=== PATIENT | female | born 1960 | race Caucasian/White ===

== ENCOUNTER 2022-07-28 01:26 | Day surgery (SDC) | payer OTHER, SELFPAY ==
[2022-07-20 14:19] VITALS: BMI 27.0
[2022-07-28 12:14] VITALS: BP 117/71; PULSE 64; RESP 20; TEMP 36.3; O2SAT 100; BMI 26.1
[2022-07-28] MEDS: LACTATED RINGERS 1,000 ML 150 ML IV CONT (12:17)
--- NOTE | 2022-07-28 12:37 | P.HPUP_ITS ---
History and Physical Update Update Date/Time: 07/28/22 12:37 Patient's main complaint is hoarseness. She does have some concomitant dysphagia. Plan for EGD today. Patient would benefit from ENT referral. History and Physical has been reviewed, including an updated exam of the patient . There are NO changes in the patient's condition. Risks, benefits, and alternatives have been discussed and questions answered. Patient agrees to proceed with procedure.
--- NOTE | 2022-07-28 13:18 | WPDANESEPPF ---
Anes - Initial Pre Proc Eval Procedure: Operation Date: 07/28/22 13:30 Proposed Procedures p Esophagogastroduodenoscopy - Hussein Anguiano MD Date/Time: 07/28/22 13:18 Surgeon: Hussein Anguiano MD Pre Op Diagnosis: dysphagia Patient Data Age: 61 Gender: F Height: 1.68 m Weight: 73.5 kg Last Vital Signs Temp 97.4 F L 07/28/22 12:14 Pulse 64 07/28/22 12:14 Resp 20 07/28/22 12:14 BP 117/71 07/28/22 12:14 Pulse Ox 100 07/28/22 12:14 O2 Del Method Room Air 07/28/22 12:14 Allergies Allergy/AdvReac Type Severity Reaction Status Date / Time No Known Allergies Allergy Unknown Verified 07/28/22 12:13 NKFA Allergy Mild Unknown Uncoded 07/28/22 12:13 Home Medications Medication Instructions Recorded Confirmed Type aspirin 81 mg tablet,delayed 81 mg PO DAILY 07/14/22 07/20/22 History release (Adult Aspirin Regimen) atorvastatin 20 mg tablet 20 mg PO DAILY 07/14/22 07/20/22 History cholecalciferol (vitamin D3) 10 10 mcg PO DAILY 07/14/22 07/20/22 History mcg (400 unit) capsule glucosamine HCl 500 mg tablet 500 mg PO DAILY 07/14/22 07/20/22 History lactobacillus combination no.9 4 4,000 mmu cells PO DAILY 07/14/22 07/20/22 History billion cell capsule (Adult 50 Plus Probiotic) meloxicam 15 mg tablet 15 mg PO DAILY 07/14/22 07/20/22 History metoprolol succinate 25 mg 12.5 mg PO DAILY 07/14/22 07/28/22 History tablet,extended release 24 hr omeprazole 20 mg capsule,delayed 20 mg PO DAILY 07/14/22 07/20/22 History release rizatriptan 10 mg tablet 10 mg PO ONCE 07/14/22 07/20/22 History Patient hx anesthesia problems: none Family hx anesthesia problems: none Results Review: All pre-operative results and documents have been reviewed as part of the pre-operative evaluation. PMFSH Past Medical History Medical History Normal colonoscopy Surgical History Surgical History H/O: hysterectomy History of lumpectomy of left breast Family History Family History Father Hypertension Mother Lung cancer Social History Social History Smoking status: Never smoker Second hand tobacco smoke exposure: No Alcohol intake: current Drinks per week: 4 Alcohol use details: wine 2 times weekly Substance use: never Substance use type: does not use Living arrangements: with family Spiritual care concerns: No Anes - Eval Final PreProcedure Day of Procedure 07/28/22 13:18 Patient weight: normal Heart: regular rate and rhythm Lungs: clear to auscultation Airway: Mallampati scale class II Neurological: alert and oriented Last oral intake: >/= 8 hours ASA classification: II Emergent: no Anesthetic plan: proceed Anesthesia type and monitoring: general GIVS and standard monitoring Results Review: All pre-operative results and documents have been reviewed as part of the pre-operative evaluation. Informed Consent: The patient's anesthetic plan and its attendant risks and benefits were discussed with the patient/family/POA. Questions were solicited and answers provided to the satisfaction of the patient/family/POA.
[2022-07-28 13:57] VITALS: BP 132/94; PULSE 75; RESP 16; O2SAT 100
[2022-07-28 14:07] VITALS: BP 142/85; PULSE 73; RESP 20; O2SAT 100
[2022-07-28 14:17] VITALS: BP 142/87; PULSE 61; RESP 16; O2SAT 100
== END 2022-07-28 14:24 | disposition home or self-care (01) ==
PROVIDERS: PCP Nurse Practitioner Family; Visit Provider Internal Medicine Gastroenterology
PROC: 0DJ08ZZ Inspection of Upper Intestinal Tract, Via Natural or Artificial Opening Endoscopic (ICD-10-PCS; CPT 43235; principal; 2022-07-28 13:30)
DX: R10.13 Epigastric pain (principal); R49.0 Dysphonia; Z79.82 Long term (current) use of aspirin
CPT/HCPCS: 43235; J2704; J7120

== ENCOUNTER → 2022-11-06 07:49 | Outpatient (CLI) | payer OTHER, SELFPAY ==
--- NOTE | ~2022-11-06 | MR_ITS ---
EXAMINATION: MR lumbar spine wo con DATE: 11/06/2022 08:16 INDICATION: Low back pain. Left leg pain. TECHNIQUE: Magnetic resonance imaging (MRI) of the lumbar spine was performed without intravenous con trast. Sequences included sagittal T2-weighted FSE, sagittal T2-weighted FS FSE, sagittal T1-weighted FSE, and axial T2-weighted FSE. COMPARISON: None FINDINGS: There is 12 degrees dextroscoliosis of lumbar spine. Vertebral body heights are normal. The re is moderately decreased disc height at L2-L3, mildly decreased disc height at L3-L4, moderately de creased disc height at L4-L5, and severely decreased disc height at L5-S1 with endplate remodeling. T he distal spinal cord signal intensity is normal. The conus medullaris is at L1-L2. The following dis c levels are specifically discussed: L1-L2: There is a left central extrusion. There is mild bilateral facet joint osteoarthritis. There i s no neural foraminal stenosis. There is mild central canal stenosis. L2-L3: The disc is bulging and has an annular fissure. There is mild bilateral facet joint osteoarthr itis. There is mild bilateral neural foraminal stenosis. There is mild central canal stenosis. L3-L4: The disc is bulging and has an annular fissure. There is mild bilateral facet joint osteoarthr itis. There is mild bilateral neural foraminal stenosis. There is mild central canal stenosis. L4-L5: The disc is bulging and has an annular fissure. There is severe bilateral facet joint osteoart hritis. There is mild bilateral neural foraminal stenosis. There is mild central canal stenosis. L5-S1: The disc is bulging and has an annular fissure. There is mild bilateral facet joint osteoarthr itis. There is moderate bilateral neural foraminal stenosis. There is mild central canal stenosis. IMPRESSION: 1. Severe lumbar spondylosis. 2. Lumbar dextroscoliosis. Reviewed, dictated and finalized at location A. P SEGMENT CONSULTANT
== END ==
PROVIDERS: PCP Nurse Practitioner Family; Visit Provider Nurse Practitioner Family
DX: M54.42 Lumbago with sciatica, left side (principal); M51.36 Other intervertebral disc degeneration, lumbar region; M43.06 Spondylolysis, lumbar region; M41.86 Other forms of scoliosis, lumbar region
CPT/HCPCS: 72148

== ENCOUNTER 2025-05-01 00:18 | Day surgery (SDC) | payer MEDICARE, SELFPAY ==
[2025-04-20 14:12] VITALS: BMI 24.1
--- OUTSIDE RECORDS SUMMARY | 2025-05-01 00:20 | XMS_ITS | Clinical Summary ---
Author Organization [address] Address [address] [place] [id number] Care Team Providers Care Cook 3 Pastry Name Role Phone Mckenna Murguia NP Primary Care Provider [phone] Allergies No known active allergies Medications atorvastatin (LIPITOR) 20 mg tablet Take 1 tablet (20 mg total) by mouth daily 2 Active lisinopriL (PRINIVIL,ZESTR IL) 5 mg tablet Take 1 tablet (5 mg total) by mouth daily 2 Active meloxicam (MOBIC) 15 mg tablet Take 1 tablet (15 mg total) by mouth daily 2 Active metoprolol XL (TOPROL-XL) 25 mg extended release tablet Take 1 tablet (25 mg total) by mouth daily 2 Active omeprazole (PriLOSEC) 20 mg capsule Take by mouth daily 2 Active rizatriptan (MAXALT) 10 mg tablet TAKE 1 TABLET BY MOUTH ONCE NEEDED FOR HEADACHES. MAY REPEAT IN 2 HOURS NEEDED 2 Active aspirin 81 mg enteric coated tablet Take 1 tablet (81 mg total) by mouth daily Active cyanocobalamin, vitamin B-12, 3,000 mcg tablet, sublingual by other route Acti ve diclofenac DR (VOLTAREN) 75 mg EC tablet diclofenac sodium 75 mg tablet,delayed release 0 Active ergocalciferol (VITAMIN D) 50,000 unit capsule Take 1 capsule (50,000 Units total) by mouth once a week 2 Active fexofenadine-ps eudoephedrine (Payal-D 24 Hour) 180-240 mg per 24 hr tablet Active fluticasone propionate (FLONASE) 50 mcg/actuation nasal spray fluticasone propionate 50 mcg/actuation nasal spray,suspension Active L. acidophilus/Bif id. animalis 32 billion cell capsule Take 1 capsule by mouth daily Active mupirocin (BACTROBAN) 2 % ointment mupirocin 2 % topical ointment Active HYDROcodone-remberto taminophen (NORCO) 5-325 mg per tablet hydrocodone 5 mg-acetaminophen 325 mg tablet Active oxyCODONE-aceta minophen (PERCOCET) 5-325 mg per tablet oxycodone-acetam inophen 5 mg-325 mg tablet Active valACYclovir (VALTREX) 1 gram tablet valacyclovir 1 gram tablet Active Active Problems Problem Noted Date Diagnosed Date Laryngopharyngeal reflux (LPR) 08/25/2022 Hoarseness 08/25/2022 Thyroid nodule 08/25/2022 Pharyngeal dysphagia 08/25/2022 Surgical History Surgery Date Site/Laterality Comments TONSILLECTOMY BREAST LUMPECTOMY HYSTERECTOMY BUNIONECTOMY Medical History Medical History Date Comments Hypertension Family History Medical History Relation Name Comments Cancer Father Cancer Mother Relation Name Status Comments Father Mother Social History Tobacco Use Types Packs/Day Years Used Date Smoking Tobacco: Never Smokeless Tobacco: Never Tobacco Cessation:Counseling Given: Not Answered Personal Safety Answer Date Recorded Getting School Help Needed Not on file 12/24 Comments Unknown Sex and Gender Information Value Date Recorded Sex Assigned at Not on file 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[employer] Gender Identity Not on file Sexual Orientation Not on file Obstetrics History Last Filed Vital Signs Vital Sign Reading Time Taken Comments Blood Pressure 123/82 09/30/2024 4:17 PM CDT Pulse 72 09/30/2024 4:17 PM CDT Temperature 36.5 C (97.7 F) 09/30/2024 4:17 PM CDT Respiratory Rate 20 09/30/2024 4:17 PM CDT Oxygen Saturation 99% 09/30/2024 4:17 PM CDT Inhaled Oxygen Concentration - - Weight 72.6 kg (160 lb) 09/30/2024 4:17 PM CDT Height 170.2 cm (5' 7) 09/30/2024 4:17 PM CDT Body Mass Index 25.06 09/30/2024 4:17 PM CDT Plan of Treatment Health Maintenance Due Date Last Done Comments Colon Cancer Screening-Colonoscopy 1958 Depression Screening 1958 Fall Risk Assessment 1958 Hepatitis C Screening 1958 DTaP/Tdap/Td Vaccine (1 - Tdap) 1969 Hepatitis B Screening 1976 Pneumococcal vaccine 65+ (1 of 1 - PCV) 2008 Well Visit 65+ 2023 Covid-19 Vaccine (2023-2 5 season) 2024 08/16/2022, 04/02/2022, 11/26/2021, Additional history exists Breast Cancer Screening-Mammogram 03/07/2025 03/07/2024, 03/07/2024, 08/19/2022, Additional history exists Osteoporosis Screening-Bone Density Scan 08/21/2026 08/21/2024, 08/19/2022 Zoster Vaccine Completed 11/14/2020, 08/16/2020 Influenza Vaccine Completed 08/21/2024, , 08/16/2022, Additional history exists Insurance PPO MEDICARE [facility] Care Teams Cook 3 Pastry Relationship Specialty Start Date End Date Mckenna Murguia NP PCP - General Nurse Practitioner 08/13/22
--- OUTSIDE RECORDS SUMMARY | 2025-05-01 00:21 | XMS_ITS | CONTINUITY OF CARE DOCUMENT ---
Author Name sandra flores Address Unknown Organization [facility] Address [id number] [place] [address] [address] [place] [address] Phone [phone] Care Team Providers Care Library Assistant Name Role Phone DAHIANA MADSEN MD Unavailable [phone] DAHIANA MADSEN MD Unavailable [phone] INSURANCE PROVIDERS Payer name Policy type / Coverage type Elizabeth red alliance party ID AETNA [facility] Other [id number]
--- OUTSIDE RECORDS SUMMARY | 2025-05-01 00:21 | XMS_ITS | Encounter Summary ---
Author Organization [facility] Address [address] [place] [address] Phone Care Team Providers Care Automated Process Operator Name Role Phone Katie Cobian MD Primary Care Provider [phone] Montrell Villalpando MD Unavailable [phone] Reason for Visit * Reason Comments Medication Refill Encounter Details Date Type Department Care Team (Late st Contact Info) Description 05/28/2021 Refill [facility] [address] [place] [address] Katie Cobian MD [address] [place] [address] Medication Refill Social History Tobacco Use Types Packs/Day Years Used Date Smoking Tobacco: Never Smokeless Tobacco: Never Alcohol Use Standard Drinks/Week Comments No 0 (1 standard drink = 0.6 oz pur e alcohol) PHQ-2 Answer Date Recorded PHQ-2 Score 0 10/23/2019 Comments No Sex and Gender Information Value Date Recorded Sex Assigned at Not on file Legal Sex Female 10:03 AM CDT Gender Identity Not on file Sexual Orientation Not on file documented as of this encounter Miscellaneous Notes * Telephone Encounter - Josie Ellison RN - 05/29/2021 9:38 AM CDT The patient said she has moved and changed PCPs. [facility] at [facility] notified to [place] any scripts/refills for the patient from Dr. Cobian. * Telephone Encounter - Josie Ellison RN - 05/28/2021 9:12 AM CDT Left a message for the patient to return call. (Patient needs appointment) * Telephone Encounter - Josie Ellison RN - 05/28/2021 8:09 AM CDT Needs appointment. 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
--- OUTSIDE RECORDS SUMMARY | 2025-05-01 00:21 | XMS_ITS | Clinical Summary ---
Author Organization [facility] Address [address] [place] [address] Phone Care Team Providers Care Sheet Fed Printer Name Role Phone Montrell Villalpando MD Unavailable [phone] Allergies No known active allergies Medications Calcium Citrate-Vitamin D (CALCIUM + D PO) Take by mouth. Active Cetirizine HCl 10 MG Capsule Take by mouth. Active diclofenac (VOLTAREN) 75 MG Tablet Delayed ResponseIndications :Primary osteoarthritis of both knees TAKE 1 TABLET BY MOUTH TWICE A DAY 180 Tab 3 0 Active Rizatriptan Benzoate 10 MG TabletIndications:O ther migraine without status migrainosus, not intractable TAKE 1 TABLET BY MOUTH ONCE NEEDED FOR HEADACHES. MAY REPEAT IN 2 HOURS NEEDED 10 Tablet 2 1 Active Active Problems Problem Noted Date Diagnosed Date Migraine 07/27/2017 Primary osteoarthritis of both knees 07/27/2017 Vitamin D insufficiency 07/27/2017 Immunizations Immunization Administration Dates Next Due Influenza Vaccine 09/22/2019 Influenza Vaccine greater than 3 yrs 09/21/2018 Zoster Vaccine Recombinant 08/16/2020 Family History Medical History Relation Name Comments Hypertension Brother 1 No Known Problems Brother 2 Hypertension Brother 3 Colon Cancer Father Hypertension Father Hypertension Mother Lung Cancer Mother Ulcerative Colitis Mother Cervical Cancer Sister 1 Hypertension Sister 1 No Known Problems Sister 2 Relation Name Status Comments Brother 1 Alive Brother 2 Alive Brother 3 Alive Father Mother Sister 1 Alive Sister 2 Alive Social History Tobacco Use Types Packs/Day Years Used Date Smoking Tobacco: Never Smokeless Tobacco: Never Tobacco Cessation:Counseling Given: No Alcohol Use Standard Drinks/Week Comments No 0 (1 standard drink = 0.6 oz pur e alcohol) PHQ-2 Answer Date Recorded PHQ-2 Score 0 10/23/2019 Comments No Sex and Gender Information Value Date Recorded Sex Assigned at Not on file Legal Sex Female 10:03 AM CDT Gender Identity Not on file Sexual Orientation Not on file Last Filed Vital Signs Vital Sign Reading Time Taken Comments Blood Pressure 120/76 10/23/2019 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 Pulse 58 10/23/2019 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 Temperature 37 C (98.6 F) 10/23/2019 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 Respiratory Rate 16 10/23/2019 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 Oxygen Saturation 100% 10/23/2019 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 Inhaled Oxygen Concentration - - Weight 72.5 kg (159 lb 14.4 oz) 10/23/2019 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 Height 168.9 cm (5' 6.5) 10/23/2019 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 Body Mass Index 25.42 10/23/2019 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 Plan of Treatment Health Maintenance Due Date Last Done Comments Hepatitis C Virus (HCV) Screening 1960 TdaP Immunization 1958 Colonoscopy 2003 Colorectal Cancer Screening 2003 Cologuard 2008 Immunochemical Fecal Occult Blood 2008 Pneumococcal Immunization (50+ years) (1 of 1 - PCV) 2008 Zoster Immunization (2 of 2) 10/11/2020 08/16/2020 Influenza Immunization (#1) 2024 09/22/2019, 1 SARS-COV-2 Immunization ( season) 2024 04/02/2022, 11/26/2021, 02/28/2021, Additional history exists Respiratory Syncytial Virus (RSV) Immunization (Adult) (1 - 1-dose 75+ series) 2033 Hepatitis B Immunization Aged Out No longer eligible based on patient's age to complete this topic Meningococcal Immunization (ACWY) Aged Out No longer eligible based on patient's age to complete this topic Rotavirus Immunization Aged Out No lo nger eligible based on patient's age to complete this topic Care Teams Sheet Fed Printer Relationship Specialty Start Date End Date Montrell Villalpando MD [address] [facility] [address] [place] [address] Consulting Physician Obstetrics & Gynecology 02/15/19
--- OUTSIDE RECORDS SUMMARY | 2025-05-01 00:21 | XMS_ITS | Clinical Summary ---
Author Organization [facility] Address [address] [place] [address] Care Team Providers Care Upper Cutter Name Role Phone Katie Cobian MD Primary Care Provider [phone] Source Comments [facility],non-owned Affiliates and Associated Physician Practices is amultiple site organization consisting of ambulatory clinics and hospital sitesin [place] and [place]. This disclosure is being madepursuant to the Care Everywhere program and may not contain all information available regarding this patient. Last updated 18.[facility] Allergies No known active allergies Medications * Be aware that medications may not be up to date on this document. Alwaysverify current medications with the patient. RIZATRIPTAN BENZOATE PO Active DICLOFENAC PO Active Active Problems Problem Noted Date Diagnosed Date Arthralgia 09/24/2016 Migraine 09/24/2016 Social History Tobacco Use Types Packs/Day Years Used Date Smoking Tobacco: Never Smokeless Tobacco: Never Comments No Sex and Gender Information Value Date Recorded Sex Assigned at Not on file Legal Sex Female 9:56 AM CDT Gender Identity Not on file Sexual Orientation Not on file Last Filed Vital Signs Vital Sign Reading Time Taken Comments Blood Pressure 120/70 04/13/2018 11:19 AM CDT Pulse 60 04/13/2018 11:19 AM CDT Temperature 37.1 C (98.7 F) 04/13/2018 11:19 AM CDT Respiratory Rate 16 04/13/2018 11:19 AM CDT Oxygen Saturation 97% 04/13/2018 11:19 AM CDT Inhaled Oxygen Concentration - - Weight 70.3 kg (155 lb) 04/13/2018 11:19 AM CDT Height 172.7 cm (5' 8) 04/13/2018 11:19 AM CDT Body Mass Index 23.57 04/13/2018 11:19 AM CDT Plan of Treatment Health Maintenance Due Date Last Done Comments BONE DENSITY TESTING 1960 COLOGUARD (AGES 45-75) - COL ON CA SCREENING 1958 COLON MONITORING 1958 COLONOSCOPY - COLON CA SCREENING 1958 CT COLONOGRAPHY - COLON CA SCREENING 1958 Colorectal Cancer Screening 1958 FIT - COLON CA SCREENING 1958 FLEX SIG - COLON CA SCREENING 1958 LIPID TESTING 1958 MAMMOGRAM 1958 HEPATITIS C SCREENING 12/19/1976 DTAP/TDAP/TD VACCINES (1 - Tdap) 1977 PNEUMOCOCCAL VACCINE 50+ (1 of 1 - PCV) 2008 ZOSTER VACCINE (1 of 2) 2008 COVID-19 VACCINE (1 - 2023-2 5 season) 2024 DEPRESSION SCREENING 11/29/2024 INFLUENZA VACCINE (Season Ended) 2025 Respiratory Syncytial Virus (RSV) Vaccine Pt: or over 60 yrs (1 - 1-dose 75+ series) 2033 HEPATITIS B VACCINE Aged Out No longe r eligible based on patient's age to complete this topic HIB VACCINE Aged Out No longer eligi ble based on patient's age to complete this topic HPV VACCINE Aged Out No longer eligi ble based on patient's age to complete this topic MENINGOCOCCAL (Group B) VACC INE SHARED DECISION-MAKING Aged Out No longer eligibl e based on patient's age to complete this topic MENINGOCOCCAL GROUPS A/C/Y/W VACCINE Aged Out No longer eligible b ased on patient's age to complete this topic Insurance AETNA Care Teams Upper Cutter Relationship Specialty Start Date End Date Katie Cobian MD PCP - General Family Medicine 04/13/18
--- OUTSIDE RECORDS SUMMARY | 2025-05-01 00:21 | XMS_ITS | Clinical Summary ---
Author Organization [facility] [address] Address [address] [place] [address] Phone Care Team Providers Care Felt Hat Flanging Operator Name Role Phone Mainor Ring MD Primary Care Provider [phone] Active Problems No known active problems Immunizations Immunization Administration Dates Next Due INFLUENZA VACCINE QUADRIVALENT 3 YR UP PF IM INFLUENZA VACCINE QUADRIVALENT 6 MOS UP PF IM Social History Tobacco Use Types Packs/Day Years Used Date Smoking Tobacco: Never Assessed Comments Unknown Sex and Gender Information Value Date Recorded Sex Assigned at Not on file Legal Sex Female 5:58 AM PCAS Gender Identity Not on file Sexual Orientation Not on file Plan of Treatment Health Maintenance Due Date Last Done Comments DTAP/TDAP/TD VACCINES (1 - Tdap) 1977 BREAST CANCER SCREENING 1998 COLORECTAL SCREENING 2003 Colorectal Cancer Screening 2003 FIT-DNA Q 3 years 2003 FIT/FOBT Q 1 year 2003 Flex Sig/CT Colonography Q 5 years 2003 PNEUMOCOCCAL VACCINE 50+ YEA RS (1 of 1 - PCV) 2008 ZOSTER VACCINE (1 of 2) 2008 OSTEOPOROSIS SCREENING 2023 INFLUENZA VACCINE (#1) 2024 , 09/21/2018, 09/21/2018 RSV VACCINE (60+ or ) (1 - 1-dose 75+ series) 2033 Care Teams Felt Hat Flanging Operator Relationship Specialty Start Date End Date Mainor Ring MD PCP - General Internal Medicine 11/06/10
--- OUTSIDE RECORDS SUMMARY | 2025-05-01 00:21 | XMS_ITS | Referral Summary ---
Author Organization [address] Address [address] [place] [id number] Care Team Providers Care Document Coordinator Name Role Phone Mckenna Murguia NP Primary Care Provider [phone] Allergies No known active allergies Medications atorvastatin [...] 08/25/2022 Thyroid nodule 08/25/2022 Pharyngeal dysphagia 08/25/2022 Social History Tobacco Use Types Packs/Day Years Used Date Smoking Tobacco: Never Smokeless Tobacco: Never Tobacco Cessation:Counseling Given: Not Answered Personal Safety Answer Date Recorded Getting School Help Needed Not on file 12/24 Comments Unknown Sex and Gender Information Value Date Recorded Sex Assigned at Not on file 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
[2025-05-01 10:00] VITALS: BP 133/74; PULSE 72; RESP 17; TEMP 36.6; O2SAT 99; BMI 23.1
--- NOTE | 2025-05-01 10:10 | WPDANESEPPF ---
Anes - Initial Pre Proc Eval Procedure: Operation Date: 05/01/25 11:30 Proposed Procedures p Colonoscopy - Joe Najera MD Date/Time: 05/01/25 10:10 Surgeon: Joe Najera MD Pre Op Diagnosis: screening malignant neoplasm of colon Patient Data Age: 64 Gender: F Height: 1.7 m Weight: 67.1 kg Last Vital Signs Temp 36.6 C 05/01/25 10:00 Pulse 72 05/01/25 10:00 Resp 17 05/01/25 10:00 BP 133/74 05/01/25 10:00 Pulse Ox 99 05/01/25 10:00 O2 Del Method Room Air 05/01/25 10:00 Allergies Allergy/AdvReac Type Severity Reaction Status Date / Time No Known Allergies Allergy Unknown Verified 05/01/25 09:58 NKFA Allergy Mild Unknown Uncoded 05/01/25 09:58 Home Medications ?Medication ?Instructions ?Recorded ?Confirmed ?Type aspirin 81 mg tablet,delayed 81 mg PO DAILY 07/14/22 04/20/25 History release (Adult Aspirin Regimen) atorvastatin 20 mg tablet 20 mg PO DAILY 07/14/22 04/20/25 History cholecalciferol (vitamin D3) 10 10 mcg PO DAILY 07/14/22 04/20/25 History mcg (400 unit) capsule glucosamine HCl 500 mg tablet 500 mg PO DAILY 07/14/22 04/20/25 History lactobacillus combination no.9 4 4,000 mmu cells PO DAILY 07/14/22 04/20/25 History billion cell capsule (Adult 50 Plus Probiotic) meloxicam 15 mg tablet 15 mg PO DAILY 07/14/22 04/20/25 History metoprolol succinate 25 mg 25 mg PO DAILY 07/14/22 05/01/25 History tablet,extended release 24 hr omeprazole 20 mg capsule,delayed 20 mg PO DAILY 07/14/22 04/20/25 History release rizatriptan 10 mg tablet 10 mg PO ONCE 07/14/22 04/20/25 History calcium 600 mg (as 2 cap PO DAILY 04/20/25 04/20/25 History carbonate)-vitamin D3 5 mcg (200 unit) capsule (Calcium 600 + D(3)) cyanocobalamin (vitamin B-12) 100 100 mcg PO DAILY 04/20/25 04/20/25 History mcg tablet (Vitamin B-12) fiber 1 tablet PO DAILY 04/20/25 04/20/25 History lisinopril 5 mg tablet 5 mg PO DAILY 04/20/25 04/20/25 History Patient hx anesthesia problems: none Family hx anesthesia problems: none Results Review: All pre-operative results and documents have been reviewed as part of the pre-operative evaluation. [facility] Past Medical History Medical History (Updated 04/30/25 @ 14:50 by Heriberto Manning DO) Irregular heart beat Hyperlipidemia Hypertension Normal colonoscopy Surgical History Surgical History History of lumpectomy of left breast H/O: hysterectomy Family History Family History Father Hypertension Mother Lung cancer Social History Social History Smoking status: Never smoker Second hand tobacco smoke exposure: No Alcohol intake: current Drinks per week: 1 Alcohol use details: wine 2 times weekly Substance use: never Substance use type: does not use Living arrangements: with family Spiritual care concerns: No Anes - Eval Final PreProcedure Day of Procedure 05/01/25 10:10 Patient weight: normal Heart: regular rate and rhythm Lungs: clear to auscultation and normal air movement Airway: Mallampati scale class II Neurological: alert and oriented Last oral intake: >/= 8 hours ASA classification: III Emergent: no Anesthetic plan: proceed Anesthesia type and monitoring: general GIVS and standard monitoring Results Review: All pre-operative results and documents have been reviewed as part of the pre-operative evaluation. Informed Consent: The patient's anesthetic plan and its attendant risks and benefits were discussed with the patient/family/POA. Questions were solicited and answers provided to the satisfaction of the patient/family/POA.
[2025-05-01] MEDS: LACTATED RINGERS 1,000 ML 150 ML IV CONT (10:11)
--- NOTE | 2025-05-01 10:37 | PM.HPGS ---
History of Present Illness History of Present Illness Consent: Risks, benefits, and alternatives have been discussed and questions answered. Patient agrees to proceed with procedure. Chief complaint: screening malignant neoplasm of colon Narrative: Pari Diaz is a 64 year old female with last colonoscopy 5 years ago, father had colon cancer Review of Systems Review of Systems: All systems reviewed & are unremarkable except as noted in HPI and below PMFSH Past Medical History Medical History (Updated 05/01/25 @ 10:38 by Joe Najera MD) Family history of colon cancer in father Irregular heart beat Hyperlipidemia Hypertension Normal colonoscopy Surgical History Surgical History History of lumpectomy of left breast H/O: hysterectomy Family History Family History Father Hypertension Mother Lung cancer Social History Social History Smoking status: Never smoker Second hand tobacco smoke exposure: No Alcohol intake: current Drinks per week: 1 Alcohol use details: wine 2 times weekly Substance use: never Substance use type: does not use Living arrangements: with family Spiritual care concerns: No Meds Home Medications and Allergies Home Medications ?Medication ?Instructions ?Recorded ?Confirmed ?Type aspirin 81 mg tablet,delayed 81 mg PO DAILY 07/14/22 04/20/25 History release (Adult Aspirin Regimen) atorvastatin 20 mg tablet 20 mg PO DAILY 07/14/22 04/20/25 History cholecalciferol (vitamin D3) 10 10 mcg PO DAILY 07/14/22 04/20/25 History mcg (400 unit) capsule glucosamine HCl 500 mg tablet 500 mg PO DAILY 07/14/22 04/20/25 History lactobacillus combination no.9 4 4,000 mmu cells PO DAILY 07/14/22 04/20/25 History billion cell capsule (Adult 50 Plus Probiotic) meloxicam 15 mg tablet 15 mg PO DAILY 07/14/22 04/20/25 History metoprolol succinate 25 mg 25 mg PO DAILY 07/14/22 05/01/25 History tablet,extended release 24 hr omeprazole 20 mg capsule,delayed 20 mg PO DAILY 07/14/22 04/20/25 History release rizatriptan 10 mg tablet 10 mg PO ONCE 07/14/22 04/20/25 History calcium 600 mg (as 2 cap PO DAILY 04/20/25 04/20/25 History carbonate)-vitamin D3 5 mcg (200 unit) capsule (Calcium 600 + D(3)) cyanocobalamin (vitamin B-12) 100 100 mcg PO DAILY 04/20/25 04/20/25 History mcg tablet (Vitamin B-12) fiber 1 tablet PO DAILY 04/20/25 04/20/25 History lisinopril 5 mg tablet 5 mg PO DAILY 04/20/25 04/20/25 History Allergies Allergy/AdvReac Type Severity Reaction Status Date / Time No Known Allergies Allergy Unknown Verified 05/01/25 09:58 NKFA Allergy Mild Unknown Uncoded 05/01/25 09:58 Vital Signs Vital Signs - 24 hr 05/01/25 10:00 Temperature 98 F Pulse Rate 72 Respiratory Rate 17 Blood Pressure 133/74 Pulse Oximetry 99 Oxygen Delivery Room Air Exam Const: General: comfortable and no acute distress HENMT: Face/Nose/Sinus: Normal nares present Eyes: General: appearance normal, both eyes and all related structures Neck: Neck: no JVD Resp: Auscultation: clear to auscultation bilaterally Cardio: Rate: regular rate Rhythm: regular rhythm GI: Inspection: non-distended GI Palp: Yes Soft to palpation Skin: General skin exam: normal color Neuro: General: gait normal Speech: normal speech Extrem: General: normal to inspection Psych: Mental Status: mental status grossly normal Assessment and Plan Assessment and plan (1) Family history of colon cancer in father: Code(s): Z80.0 - Family history of malignant neoplasm of digestive organs Status: Acute Assessment and Plan: colonoscopy
--- NOTE | 2025-05-01 10:49 | S_PTH ---
PATIENT: Pari Diaz LOC: [facility]#:[id number] AGE/SX: 64/F ROOM: RE05/01/[address]: Joe Najera MD : 1960 BED: DIS: 05/01/2025 SPEC #: [id number] RECD: 05/01/25 11:11 STATUS: ROSALINO ZAMORA #: [id number] CYNTHIA: 05/01/25 10:[address]: Joe Najera DEPT: [facility] Surgical RECD BY: Norris Quintanilla ENTERED: 05/01/25 11:12 SP TYPE: Surgical OTHR DR: Samira Sethi, [employer] DEVELOPER Tissues: A - Colon Polypectomy B - Colon Polypectomy Procedures: Hematoxylin and Eosin Stain Gross and Microscopic Level 4
[2025-05-01 10:54] VITALS: BP 104/67; PULSE 69; RESP 14; O2SAT 99
[2025-05-01 11:03] VITALS: BP 110/75; PULSE 68; RESP 15; O2SAT 99
--- NOTE | 2025-05-01 11:06 | SUR.OPER ---
Cecal polyp not retrieved. Dr. Partida aware.
[2025-05-01 11:13] VITALS: BP 116/71; PULSE 64; RESP 18; O2SAT 99
== END 2025-05-01 11:28 | disposition home or self-care (01) ==
PROVIDERS: PCP Nurse Practitioner Family; Referring Provider Nurse Practitioner Family; Visit Provider Internal Medicine Gastroenterology
PROC: 0DJD8ZZ Inspection of Lower Intestinal Tract, Via Natural or Artificial Opening Endoscopic (ICD-10-PCS; CPT 45378; principal; 2025-05-01 11:30)
DX: Z12.11 Encounter for screening for malignant neoplasm of colon (principal); D12.2 Benign neoplasm of ascending colon; K63.5 Polyp of colon; K64.8 Other hemorrhoids; E78.5 Hyperlipidemia, unspecified; I10 Essential (primary) hypertension; I49.9 Cardiac arrhythmia, unspecified; Z79.82 Long term (current) use of aspirin; Z98.890 Other specified postprocedural states; Z80.0 Family history of malignant neoplasm of digestive organs; Z80.1 Family history of malignant neoplasm of trachea, bronchus and lung
CPT/HCPCS: 45385; 88305; J2704; J7120